=== PATIENT | female | born 1980 | race African-American/Black ===

== ENCOUNTER 2020-06-07 08:37 | Emergency (ER) | payer SELFPAY ==
[2020-06-07 09:09] LABS: Absolute Lymphocytes (CBC) 1.5 K/uL (0.7-4.9); Basophils % 1.3 % (0-1.3); Hematocrit 29.4 % (36.0-45.0); Lymphocytes % 19.4 % (15.3-44.8); MPV 6.9 fL (7.6-11.3); RBC Red Blood Cell Count 4.02 M/uL (3.86-4.86)
[2020-06-07] MEDS ORDERED: ASPIRIN 81 MG CHEWABLE TABLET ONE (09:17)
[2020-06-07] MEDS ORDERED: ONDANSETRON 4 MG/2 ML VIAL ONE (09:18)
[2020-06-07] MEDS ORDERED: NA CHLORIDE 0.9% 1,000 ML ONE (09:18)
[2020-06-07] MEDS ORDERED: MORPHINE 4 MG/ML SYR ONE (09:18)
[2020-06-07 10:02] LABS: ALT/SGPT 13 U/L (12-78); AST/SGOT 11 U/L (15-37); Albumin 3.1 g/dL (3.4-5.0); Alkaline Phosphatase 51 U/L (45-117); BUN Blood Urea Nitrogen 9 mg/dL (7-18); Bicarbonate 23 mmol/L (21-32); Bilirubin Direct < 0.1 mg/dL (0-0.2); Bilirubin Total 0.3 mg/dL (0.2-1.0); Glucose Level 81 mg/dL (74-106); Magnesium 2.1 mg/dL (1.8-2.4); NT PRO-BNP 139 pg/mL (<125); Potassium 3.6 mmol/L (3.5-5.1); Protein, Total 7.5 g/dL (6.4-8.2); Sodium Level 140 mmol/L (136-145); Troponin (Emerg Dept Use Only) < 0.02 ng/mL (0.0-0.045)
--- NOTE | 2020-06-07 11:01 | RAD REPORT ---
EXAM DESCRIPTION: Freda Single View06/07/2020 9:16 am CLINICAL HISTORY: Chest pain COMPARISON: none FINDINGS: The lungs appear clear of acute infiltrate. The heart is normal size IMPRESSION: No acute abnormalities displayed
--- NOTE | 2020-06-07 11:01 | RAD REPORT ---
EXAM DESCRIPTION: CT - Chest For Pe Angio - 06/07/2020 10:46 am CLINICAL HISTORY: Chest pain COMPARISON: None. TECHNIQUE: Dynamically enhanced axial 3 mm thick images of the chest were obtained during administra tion of <100> mL Isovue 370 IV contrast. Coronal and oblique reconstruction images were generated and reviewed. Exam utilizes a protocol for optimal evaluation of pulmonary arterial tree. Maximum intensity projections 3D imaging was utilized All CT scans are performed using dose optimization technique as appropriate and may include automated exposure control or mA/KV adjustment according to patient size. FINDINGS: A pulmonary embolus is not seen. A thoracic aortic aneurysm is not noted. A pleural effusion is not seen. A pericardial effusion is not seen. A lung consolidation is not present. IMPRESSION: Negative for a pulmonary embolism.
--- NOTE | 2020-06-07 11:24 | EDPHYS ---
Physician Documentation [facility] Name: Missy Bhatti Age: 40 yrs Sex: Female : 1980 Arrival Date: 06/07/2020 Time: 08:43 Bed 16 Private MD: ED Physician Tarik Lua HPI: 06/07 08:54 This 40 yrs old Black Female presents to ER via Unassigned with complaints of Chest mak Pain. 08:54 The patient or guardian reports chest pain that is located primarily in the substernal mak area, anterior chest wall, left. Onset: 10 day(s) ago. The pain does not radiate. Associated signs and symptoms: Pertinent positives: shortness of breath. The chest pain is described as sharp, stabbing. Duration: The patient or guardian reports multiple episodes, that wax and wane, with no pattern. Modifying factors: The symptoms are alleviated by remaining still, the symptoms are aggravated by deep breath. Severity of pain: At its worst the pain was moderate in the emergency department the pain is unchanged. The patient has not experienced similar symptoms in the past. Historical: - Allergies: 08:43 PENICILLINS; aa5 - PMHx: 08:43 chronic low back pain; aa5 - PSHx: 08:43 Tubal ligation; Tonsillectomy; aa5 - Immunization history:: Adult Immunizations unknown. - Social history:: Smoking status: Patient reports the use of cigarette tobacco products, smokes one-half pack cigarettes per day. - Family history:: not pertinent. ROS: 08:54 Constitutional: Negative for fever, chills, and weight loss, Eyes: Negative for injury, mak pain, redness, and discharge, ENT: Negative for injury, pain, and discharge, Neck: Negative for injury, pain, and swelling, Abdomen/GI: Negative for abdominal pain, nausea, vomiting, diarrhea, and constipation, Back: Negative for injury and pain, : Negative for injury, bleeding, discharge, and swelling, MS/Extremity: Negative for injury and deformity, Skin: Negative for injury, rash, and discoloration, Neuro: Negative for headache, weakness, numbness, tingling, and seizure, Psych: Negative for depression, anxiety, suicide ideation, homicidal ideation, and hallucinations, Allergy/Immunology: Negative for hives, rash, and allergies, Endocrine: Negative for neck swelling, polydipsia, polyuria, polyphagia, and marked weight changes, Hematologic/Lymphatic: Negative for swollen nodes, abnormal bleeding, and unusual bruising. 08:54 Cardiovascular: Positive for chest pain. 08:54 Respiratory: Positive for pleurisy, shortness of breath. Exam: 08:54 Constitutional: This is a well developed, well nourished patient who is awake, alert, mak and in no acute distress. Head/Face: Normocephalic, atraumatic. Eyes: Pupils equal round and reactive to light, extra-ocular motions intact. Lids and lashes normal. Conjunctiva and sclera are non-icteric and not injected. Cornea within normal limits. Periorbital areas with no swelling, redness, or edema. ENT: Nares patent. No nasal discharge, no septal abnormalities noted. Tympanic membranes are normal and external auditory canals are clear. Oropharynx with no redness, swelling, or masses, exudates, or evidence of obstruction, uvula midline. Mucous membranes moist. Neck: Trachea midline, no thyromegaly or masses palpated, and no cervical lymphadenopathy. Supple, full range of motion without nuchal rigidity, or vertebral point tenderness. No Meningismus. Chest/axilla: Normal chest wall appearance and motion. Nontender with no deformity. No lesions are appreciated. Cardiovascular: Regular rate and rhythm with a normal S1 and S2. No gallops, murmurs, or rubs. Normal PMI, no JVD. No pulse deficits. Respiratory: Lungs have equal breath sounds bilaterally, clear to auscultation and percussion. No rales, rhonchi or wheezes noted. No increased work of breathing, no retractions or nasal flaring. Abdomen/GI: Soft, non-tender, with normal bowel sounds. No distension or tympany. No guarding or rebound. No evidence of tenderness throughout. Back: No spinal tenderness. No costovertebral tenderness. Full range of motion. Skin: Warm, dry with normal turgor. Normal color with no rashes, no lesions, and no evidence of cellulitis. MS/ Extremity: Pulses equal, no cyanosis. Neurovascular intact. Full, normal range of motion. Neuro: Awake and alert, GCS 15, oriented to person, place, time, and situation. Cranial nerves II-XII grossly intact. Motor strength 5/5 in all extremities. Sensory grossly intact. Cerebellar exam normal. Normal gait. Psych: Awake, alert, with orientation to person, place and time. Behavior, mood, and affect are within normal limits. 08:54 Back: pain, that is mild, ROM is normal, normal spinal alignment noted, CVA tenderness, is absent, vertebral tenderness, is not appreciated, muscle spasm, is not present. 09:01 ECG was reviewed by the Attending Physician. [facility] 10:57 Skin: no rash present. [facility] Vital Signs: 08:43 BP 121 / 74; Pulse 68; Resp 18 S; Temp 98.6(O); Pulse Ox 98% on R/A; Weight 111.58 kg aa5 (R); Height 5 ft. 6 in. (167.64 cm) (R); Pain 9/10; 08:43 Body Mass Index 39.71 (111.58 kg, 167.64 cm) aa5 MDM: 08:45 Patient medically screened. [facility] 08:57 Differential diagnosis: abnormal EKG, coronary artery disease chest wall pain, mak cholecystitis, Cholelithiasis esophagitis, hiatal hernia, pulmonary embolus, stable angina, unstable angina. HEART Score: History: Slightly Suspicious (0), ECG: Normal (0), Age: < or = 45 years (0), Risk Factors: > or = 3 Risk factors for atherosclerotic disease (2), [Active Smoker] [+ Family HX] [Obesity] Troponin: < or = 1 x Normal Limit (0). The patient was given aspirin in the Emergency Department. The patient's deep vein thrombosis risk score was calculated as follows: Total Score: 0. This patient was found to be at low risk for a deep vein thrombosis by using the Well's assessment criteria. The patient's pulmonary embolism risk score was calculated as follows: Total Score: 0-2 points. This patient was found to be at low risk for a pulmonary embolism by using the Well's assessment criteria. VALERIANO Risk Score: TOTAL SCORE = 0. Data reviewed: vital signs, nurses notes, lab test result(s), EKG, radiologic studies, plain films. Data interpreted: school bus monitor: rate is 73 beats/min, rhythm is regular, Pulse oximetry: on room air. Test interpretation: by ED physician or midlevel provider: ECG, plain radiologic studies. 10:54 ED course: PT IMPROVED, will dc to follow up , return if worse, aspirin daily. [facility] 06/07 08:54 Order name: Basic Metabolic Panel; Complete Time: 10:27 [facility] 06/07 08:54 Order name: CBC with Diff; Complete Time: 10:27 [facility] 06/07 08:54 Order name: LFT's; Complete Time: 10:27 [facility] 06/07 08:54 Order name: Magnesium; Complete Time: 10:27 [facility] 06/07 08:54 Order name: NT PRO-BNP; Complete Time: 10:27 [facility] 06/07 08:54 Order name: Troponin (emerg Dept Use Only); Complete Time: 10:27 [facility] 06/07 08:54 Order name: XRAY Chest (1 view); Complete Time: 11:19 [facility] 06/07 08:54 Order name: CT Chest For PE Angio; Complete Time: 11: [facility] 06/07 11:12 Order name: Urine Dipstick--Ancillary (enter results) mi 06/07 11:12 Order name: Urine --Ancillary (enter results) mi 06/07 11:23 Order name: Urine Culture [facility] 06/07 08:54 Order name: Cardiac monitoring; Complete Time: 08:55 [facility] 06/07 08:54 Order name: EKG - Nurse/Tech; Complete Time: 08:55 [facility] 06/07 08:54 Order name: IV Saline Lock; Complete Time: 10:35 [facility] 06/07 08:54 Order name: Labs collected and sent; Complete Time: 10:35 [facility] 06/07 08:54 Order name: O2 Per Protocol; Complete Time: 08:55 [facility] 06/07 08:54 Order name: O2 Sat Monitoring; Complete Time: 08:55 [facility] EC:01 Rate is 73 beats/min. Rhythm is regular. QRS [place] is Normal. NH interval is normal. QRS mak interval is normal. QT interval is prolonged at 450 msec. No Q waves. T waves are Normal. No ST changes noted. Clinical impression: NSR w/ Non-specific ST/T Changes and No evidence of ischemia. Interpreted by me. Reviewed by me. Administered Medications: 09:15 Drug: Aspirin Chewable Tablet 324 mg Route: PO; jl7 09:15 Drug: NS 0.9% 1000 ml Route: IV; Rate: 125 ml/hr; Site: left antecubital; jl7 09:16 Drug: Zofran (Ondansetron) 4 mg Route: IVP; Site: left antecubital; jl7 09:19 Drug: morphine 4 mg Route: IVP; Site: left antecubital; jl7 11:29 Drug: Rocephin 1 grams Route: IV; Rate: per protocol; Site: left antecubital; jl7 11:32 Follow up: Response: No adverse reaction; IV Status: Completed infusion jl7 Disposition: 10:54 Critical Care: not applicable. mak Disposition: 06/07/20 11:24 Discharged to Home. Impression: Chest pain, unspecified, Chest pain on breathing, Low back pain - chronic, Urinary tract infection, site not specified. - Condition is Stable. - Discharge Instructions: Back Pain, Adult, Nonspecific Chest Pain, Chest Wall Pain, Musculoskeletal Pain, Urinary Tract Infection, Adult, Chest Wall Pain, Yvay-ms-Qwke, Urinary Tract Infection, Adult, Klny-mp-Kfqm, Nonspecific Chest Pain, Oxih-cu-Bctg, Back Pain, Adult, Ojsy-rq-Rdlt, Aspirin and Your Heart. - Prescriptions for Cipro 500 mg Oral Tablet - take 1 tablet by ORAL route every 12 hours for 7 days; 14 tablet. - Medication Reconciliation Form, Thank You Letter, Antibiotic Education, Prescription Opioid Use, Work release form form. - Follow up: Private Physician; When: 2 - 3 days; Reason: Recheck today's complaints, Continuance of care, Re-evaluation by your physician. Follow up: Khalif Cintron; When: 2 - 3 days; Reason: Recheck today's complaints, Re-evaluation by your physician. - Problem is new. - Symptoms have improved. Signatures: Dispatcher [employer] EDMS Tarik Lua MD MD cha Calderon, Audri, RN RN aa5 Familia Vaughan RN RN jl7 Corrections: (The following items were deleted from the chart) 11:50 11:24 06/07/2020 11:24 Discharged to Home. Impression: Chest pain, unspecified; Chest jl7 pain on breathing; Low back pain - chronic; Urinary tract infection, site not specified. Condition is Stable. Discharge Instructions: Back Pain, Adult, Nonspecific Chest Pain, Chest Wall Pain, Musculoskeletal Pain, Chest Wall Pain, Refg-we-Ayfx, Nonspecific Chest Pain, Xzcp-wf-Rkvh, Back Pain, Adult, Lkwa-mu-Fhxr, Aspirin and Your Heart. Forms are Medication Reconciliation Form, Thank You Letter, Antibiotic Education, Prescription Opioid Use. Follow up: Private Physician; When: 2 - 3 days; Reason: Recheck today's complaints, Continuance of care, Re-evaluation by your physician. Follow up: Khalif Cintron; When: 2 - 3 days; Reason: Recheck today's complaints, Re-evaluation by your physician. Problem is new. Symptoms have improved. mak
--- NOTE | 2020-06-07 11:24 | ER ---
Nurse's Notes [facility] Name: Missy Bhatti Age: 40 yrs Sex: Female : 1980 Arrival Date: 06/07/2020 Time: 08:43 Bed 16 Private MD: Diagnosis: Chest pain, unspecified;Chest pain on breathing;Low back pain-chronic;Urinary tract infection, site not specified Presentation: 06/07 08:43 Chief complaint: Patient states: left-sided chest pain that began 2 weeks ago, pt aa5 reports chest pain is aggravated with movement and by "taking a deep breath". Pt also reports worsening chronic back pain. EMS reports administering 600 mg Ibuprofen PO [employer]ATOR. 08:43 Coronavirus screen: Client denies travel out of the [place] in the last 14 days. At this aa5 time, the client does not indicate any symptoms associated with coronavirus-19. Ebola Screen: Patient negative for fever greater than or equal to 101.5 degrees Fahrenheit, and additional compatible Ebola Virus Disease symptoms. Initial Sepsis Screen: Does the patient meet any 2 criteria? No. Patient's initial sepsis screen is negative. Does the patient have a suspected source of infection? No. Patient's initial sepsis screen is negative. Risk Assessment: Do you want to hurt yourself or someone else? Patient reports no desire to harm self or others. Onset of symptoms was May 2020. 08:43 Acuity: KAYLEE 3 aa5 08:43 Method Of Arrival: EMS: [facility] aa5 Historical: - Allergies: 08:43 PENICILLINS; aa5 - PMHx: 08:43 chronic low back pain; aa5 - PSHx: 08:43 Tubal ligation; Tonsillectomy; aa5 - Immunization history:: Adult Immunizations unknown. - Social history:: Smoking status: Patient reports the use of cigarette tobacco products, smokes one-half pack cigarettes per day. - Family history:: not pertinent. Vital Signs: 08:43 BP 121 / 74; Pulse 68; Resp 18 S; Temp 98.6(O); Pulse Ox 98% on R/A; Weight 111.58 kg aa5 (R); Height 5 ft. 6 in. (167.64 cm) (R); Pain 9/10; 08:43 Body Mass Index 39.71 (111.58 kg, 167.64 cm) [facility] ED Course: 08:43 Patient arrived in ED. aa5 08:43 Arm band placed on. aa5 08:43 Patient has correct armband on for positive identification. Bed in low position. Call [facility] light in reach. Side rails up X2. engine monitor on. Pulse ox on. NIBP on. 08:45 Tarik Lua MD is Attending Physician. [facility] 08:46 Familia Vaughan RN is Primary Nurse. jl7 08:53 EKG done, by ED staff, reviewed by Tarik Lua MD. aa5 09:00 Initial lab(s) drawn, by ma, sent to lab. Inserted saline lock: 20 gauge in left [facility] antecubital area, using aseptic technique. Blood collected. 09:06 Triage completed. aa5 09:16 XRAY Chest (1 view) In Process Unspecified. EDMS 10:46 CT Chest For PE Angio In Process Unspecified. EDMS 11:23 Khalif Cintron MD is Referral Physician. [facility] 11:49 No provider procedures requiring assistance completed. IV discontinued, intact, jl7 bleeding controlled, No redness/swelling at site. Pressure dressing applied. Patient maintains SpO2 saturation greater than 95% on room air. Administered Medications: 09:15 Drug: Aspirin Chewable Tablet 324 mg Route: PO; jl7 09:15 Drug: NS 0.9% 1000 ml Route: IV; Rate: 125 ml/hr; Site: left antecubital; jl7 09:16 Drug: Zofran (Ondansetron) 4 mg Route: IVP; Site: left antecubital; jl7 09:19 Drug: morphine 4 mg Route: IVP; Site: left antecubital; jl7 11:29 Drug: Rocephin 1 grams Route: IV; Rate: per protocol; Site: left antecubital; jl7 11:32 Follow up: Response: No adverse reaction; IV Status: Completed infusion jl7 Outcome: 11:24 Discharge ordered by . [facility] 11:49 Discharged to home ambulatory. jl7 11:49 Condition: stable 11:49 Discharge instructions given to patient, Instructed on discharge instructions, follow up and referral plans. medication usage, Demonstrated understanding of instructions, follow-up care, medications, Prescriptions given X 1. 11:50 Patient left the ED. jl7 Signatures: Dispatcher [employer] Tarik Dominguez MD MD cha Calderon, Audri RN RN aa5 Familia Vaughan RN RN jl7 Corrections: (The following items were deleted from the chart) 09:08 08:43 Chief complaint: Patient states: left-sided chest pain that began 2 weeks ago, pt aa5 reports chest pain is aggravated with movement and by "taking a deep breath". Pt also reports worsening chronic back pain. aa5
[2020-06-07 11:34] LABS: Urine Blood NEGATIVE (NEG); Urine Glucose NEGATIVE (NEG); Urine Protein NEGATIVE (NEG); Urine Specific Gravity 1.015 (1.005-1.030)
[2020-06-07] MEDS ORDERED: CEFTRIAXONE/SWI 1gm 1 GM/10 ML SYR ONE (11:37)
--- NOTE | 2020-06-09 10:47 | EKG ---
Test Date: 2020-06-07 Test Time: 08:53:36 Setter Automatic Spinning Lathe: TERRI MEASUREMENT RESULTS: Intervals: Rate: 73 [place]: 146 QRSD: 80 QT: 450 QTc: 495 [place]: P: 26 [place]: 146 QRS: 32 T: 46 INTERPRETIVE STATEMENTS: Normal sinus rhythm with sinus arrhythmia Prolonged QT Abnormal ECG No previous ECG available for comparison Electronically Signed On 06-09-20 10:44:00 CDT by Khalif Cintron
== END 2020-06-07 11:50 | disposition home or self-care (01) ==
LOC: ER 08:37
DX: R07.1 Chest pain on breathing (principal); N39.0 Urinary tract infection, site not specified; G89.29 Other chronic pain; F17.210 Nicotine dependence, cigarettes, uncomplicated; Z88.0 Allergy status to penicillin
CPT/HCPCS: 36415; 71045; 71275; 80048; 80076; 81003; 81025; 83735; 83880; 84484; 85025; 87086; 87088; 93005; 96374; 96375; 99285; J0696; J2405; J7030; Q9967